=== PATIENT | male | born 1950 | race Two or more races ===

== ENCOUNTER 2024-03-20 11:51 | Emergency (ER) | payer OTHER ==
[~2024-03-20] VITALS: Ht 180.3 cm; Wt 83.9 kg
[2024-03-20] MEDS ORDERED: TETANUS & DIPHTHERIA TOX,ADULT 0.5 ML VIAL IM ONE (15:00)
[2024-03-20] MEDS ORDERED: LIDOCAINE HCL 1% 10ML VIAL PERCUT ONE (15:00)
== END 2024-03-20 16:03 | disposition home or self-care (01) ==
LOC: ER 11:53
DX: S01.121A Laceration with foreign body of right eyelid and periocular area, initial encounter (principal); W06.XXXA Fall from bed, initial encounter; Y93.89 Activity, other specified; Y92.013 Bedroom of single-family (private) house as the place of occurrence of the external cause